=== PATIENT | male | born 1945 | race African-American/Black ===

== ENCOUNTER 2024-05-13 23:30 | Inpatient (IN) | payer MEDICARE, BC ==
[~2024-05-13] VITALS: Ht 167.6 cm; Wt 61.2 kg
[2024-05-14] VITALS (7 sets, daily range): BP systolic 133–152; BP diastolic 44–118; TEMP 97.2–98.8; O2SAT 96–98
[2024-05-14 00:15] LABS: ABG BASE EXCESS 0.3 mmol/L; ABG OXYGEN SATURATION 87.4 % (92.0-98.5); ABG PCO2 35.2 mmHg (35.0-45.0); ABG PH 7.452 (7.350-7.450); ABG PO2 51.4 mmHg (75.0-100.0); AaDO2 63.4 mmHg; COHb 0.3 % (0.5-1.5); MetHb 0.1 % (0.0-1.5); O2Hb 87.1 % (94.0-97.0); SITE, ABG Right Radial; VENT MODE, BG room air
[2024-05-14 00:29] LABS: APPEARANCE,URINE CLEAR (CLEAR); BILIRUBIN,URINE NEGATIVE (NEGATIVE); BLOOD, URINE NEGATIVE Ery/uL (NEGATIVE); COLOR,URINE YELLOW (YELLOW); KETONES,URINE NEGATIVE (NEGATIVE); LEUKOCYTE ESTERASE ,URINE NEGATIVE (NEGATIVE); NITRITE, URINE NEGATIVE (NEGATIVE); PROTEIN,URINE NEGATIVE (NEGATIVE); UGLUCOSE NEGATIVE (NEGATIVE); UROBILINOGEN,URINE 0.2 EU/dL (0.2)
[2024-05-14 00:34] LABS: BASOPHILS # (AUTO) 0.1 K/uL (0.0-0.2); EOSINOPHILS % (AUTO) 0.3 % (0.0-6.0); HEMATOCRIT 28 % (39-51); HEMOGLOBIN 9.1 g/dL (13.5-17.5); LYMPHOCYTES # (AUTO) 0.4 K/uL (0.8-4.8); LYMPHOCYTES % (AUTO) 3.6 % (20.0-44.0); MEAN CORPUSCULAR HEMOGLOBIN 28 PG (26.0-33.0); MEAN CORPUSCULAR HGB CONC 32 g/dl (31.0-36.0); MEAN CORPUSCULAR VOLUME 86 fL (80-96); MONOCYTES # (AUTO) 0.5 K/uL (0.1-1.30); MONOCYTES % (AUTO) 4.1 % (2.0-12.0); NEUTROPHILS # (AUTO) 10.4 K/uL (1.8-8.9); PLATELET COUNT (AUTO) 281 K/uL (150-450); RED BLOOD CELL COUNT(AUTO) 3.28 MIL/uL (4.5-6.0); RED CELL DISTRIBUTION WIDTH 20.5 % (11.5-15.0); WHITE BLOOD COUNT (AUTO) 11.4 K/uL (4.3-11.0)
[2024-05-14 00:55] LABS: CALCIUM, SERUM 9.6 mg/dL (8.5-10.1); CARBON DIOXIDE 26 mmol/L (21-32); CHLORIDE 104 mmol/L (98-107); CREATININE 1.6 mg/dL (0.6-1.3); GLUCOSE 160 mg/dL (74-106); POTASSIUM 4.6 mmol/L (3.5-5.1); SODIUM SERUM 139 mmol/L (136-145); UREA NITROGEN, BLOOD 33 mg/dL (7-18)
[2024-05-14 01:07] LABS: ALANINE AMINOTRANSFERASE 29 U/L (12-78); ALBUMIN 2.4 g/dL (3.4-5.0); ALKALINE PHOSPHATASE 104 U/L (46-116); ASPARTATE AMINOTRANSFERASE 30 U/L (15-37); BILIRUBIN,TOTAL 0.4 mg/dL (0.2-1.0); NT-PRO BNP 286 pg/mL (0-125); TOTAL PROTEIN, SERUM 7.6 g/dL (6.4-8.2)
[2024-05-14] MEDS ORDERED: MAG HYDROX/AL HYDROX/SIMETH 30 ML UDC PO PRN (02:30)
[2024-05-14] MEDS ORDERED: ACETAMINOPHEN 325 MG TABLET PO PRN (02:30)
[2024-05-14] MEDS ORDERED: ONDANSETRON HCL/PF 4 MG/2 ML VIAL IVP PRN (02:30)
[2024-05-14] MEDS ORDERED: MAGNESIUM HYDROXIDE 30 ML UDC PO PRN (02:30)
[2024-05-14] MEDS: CEFTRIAXONE 1GM BAG (ER ONLY) 50 ML IV ONE (03:08)
[2024-05-14] MEDS: IV NS 0.9% 1,000 ML IV SCH (03:24)
[2024-05-14] MEDS: CEFTRIAXONE 1 G in IV D5W 50 ML IV SCH (03:28)
[2024-05-14] MEDS: ENOXAPARIN SODIUM 40 MG/0.4 ML DISP.SYRIN SQ SCH (03:32)
[2024-05-14] MEDS ORDERED: AZITHROMYCIN 500 MG VIAL ONE (04:01)
[2024-05-14] MEDS: AZITHROMYCIN 500 MG in IV D5W 250 ML IV SCH (04:10)
[2024-05-14] MEDS: PANTOPRAZOLE 40 MG VIAL IV SCH (09:38)
[2024-05-14] MEDS ORDERED: HYDROGEL DRESSING 90 GM TUBE TP PRN (10:30)
[2024-05-14] MEDS ORDERED: FURO-145 PO (11:22)
[2024-05-14] MEDS ORDERED: APIX5TAB PO (11:22)
[2024-05-14] MEDS ORDERED: BRIM5DRO EACHEYE (11:22)
[2024-05-14] MEDS ORDERED: TIOT4MIS3 INH (11:22)
[2024-05-14] MEDS ORDERED: LEVO25TA2 PO (11:22)
[2024-05-14] MEDS ORDERED: MELA3TAB41 PO (11:22)
[2024-05-14] MEDS: HYDROGEL DRESSING 90 GM TUBE TP SCH (12:13)
[2024-05-14] MEDS: IV NS 0.9% 1,000 ML IV PRN (18:07)
[2024-05-15] VITALS (8 sets, daily range): BP systolic 105–147; BP diastolic 66–89; TEMP 97.9–98.6; O2SAT 81–100
[2024-05-15 07:20] LABS: CALCIUM, SERUM 8.6 mg/dL (8.5-10.1); CARBON DIOXIDE 23 mmol/L (21-32); CHLORIDE 101 mmol/L (98-107); CREATININE 1.6 mg/dL (0.6-1.3); GLUCOSE 127 mg/dL (74-106); PHOSPHORUS 4.5 mg/dL (2.5-4.9); POTASSIUM 4.4 mmol/L (3.5-5.1); SODIUM SERUM 136 mmol/L (136-145); UREA NITROGEN, BLOOD 33 mg/dL (7-18)
[2024-05-15 07:56] LABS: BASOPHILS % (AUTO) 0.1 % (0.0-2.0); HEMATOCRIT 28 % (39-51); HEMOGLOBIN 9.4 g/dL (13.5-17.5); LYMPHOCYTES # (AUTO) 0.5 K/uL (0.8-4.8); LYMPHOCYTES % (AUTO) 3.4 % (20.0-44.0); MEAN CORPUSCULAR HEMOGLOBIN 30 PG (26.0-33.0); MEAN CORPUSCULAR HGB CONC 34 g/dl (31.0-36.0); MEAN CORPUSCULAR VOLUME 90 fL (80-96); MONOCYTES # (AUTO) 0.9 K/uL (0.1-1.30); MONOCYTES % (AUTO) 6.2 % (2.0-12.0); NEUTROPHILS # (AUTO) 13.2 K/uL (1.8-8.9); NEUTROPHILS % (AUTO) 90.3 % (43.0-81.0); PLATELET COUNT (AUTO) 267 K/uL (150-450); RED BLOOD CELL COUNT(AUTO) 3.13 MIL/uL (4.5-6.0); RED CELL DISTRIBUTION WIDTH 20.9 % (11.5-15.0); WHITE BLOOD COUNT (AUTO) 14.6 K/uL (4.3-11.0)
[2024-05-15 11:27] LABS: IRON, SERUM 18 ug/dl (50-175); TOTAL IRON BINDING CAPACITY 215 ug/dl (250-450)
[2024-05-16 04:38] VITALS: O2SAT 98
[2024-05-16 07:00] VITALS: BP 129/78; TEMP 97.7; O2SAT 100
[2024-05-16] MEDS: PANTOPRAZOLE 40 MG TABLET.DR PO SCH (07:30)
[2024-05-16 07:37] LABS: BASOPHILS % (AUTO) 0.1 % (0.0-2.0); HEMATOCRIT 33 % (39-51); HEMOGLOBIN 10.7 g/dL (13.5-17.5); LYMPHOCYTES # (AUTO) 0.3 K/uL (0.8-4.8); LYMPHOCYTES % (AUTO) 1.8 % (20.0-44.0); MEAN CORPUSCULAR HEMOGLOBIN 29 PG (26.0-33.0); MEAN CORPUSCULAR HGB CONC 32 g/dl (31.0-36.0); MEAN CORPUSCULAR VOLUME 89 fL (80-96); MONOCYTES # (AUTO) 1.3 K/uL (0.1-1.30); MONOCYTES % (AUTO) 8.3 % (2.0-12.0); NEUTROPHILS # (AUTO) 14.6 K/uL (1.8-8.9); NEUTROPHILS % (AUTO) 89.8 % (43.0-81.0); PLATELET COUNT (AUTO) 236 K/uL (150-450); RED BLOOD CELL COUNT(AUTO) 3.74 MIL/uL (4.5-6.0); RED CELL DISTRIBUTION WIDTH 20.1 % (11.5-15.0); WHITE BLOOD COUNT (AUTO) 16.3 K/uL (4.3-11.0)
[2024-05-16 07:55] LABS: CALCIUM, SERUM 8.6 mg/dL (8.5-10.1); CARBON DIOXIDE 20 mmol/L (21-32); CHLORIDE 103 mmol/L (98-107); CREATININE 1.4 mg/dL (0.6-1.3); GLUCOSE 87 mg/dL (74-106); MAGNESIUM 2.2 mg/dL (1.8-2.4); PHOSPHORUS 3.8 mg/dL (2.5-4.9); SODIUM SERUM 137 mmol/L (136-145); UREA NITROGEN, BLOOD 29 mg/dL (7-18)
[2024-05-16 16:00] VITALS: BP 127/91; TEMP 98.4; O2SAT 99
== END 2024-05-16 19:35 | disposition hospice, inpatient (51) | DRG 177 ==
LOC: ER 23:32 → TELE 05-14 02:00 → MED 05-15 10:28
PROVIDERS: ADMIT Internal Medicine; ATTEND Internal Medicine
DX: J15.69 Pneumonia due to other Gram-negative bacteria (principal); G93.41 Metabolic encephalopathy; J96.01 Acute respiratory failure with hypoxia; I21.A1 Myocardial infarction type 2; N17.0 Acute kidney failure with tubular necrosis; J91.0 Malignant pleural effusion; C79.31 Secondary malignant neoplasm of brain; Z85.118 Personal history of other malignant neoplasm of bronchus and lung; E86.0 Dehydration; D64.9 Anemia, unspecified; M89.8X9 Other specified disorders of bone, unspecified site; Z66 Do not resuscitate; N18.9 Chronic kidney disease, unspecified; Z95.1 Presence of aortocoronary bypass graft; I25.10 Atherosclerotic heart disease of native coronary artery without angina pectoris; R51.9 Headache, unspecified; R90.89 Other abnormal findings on diagnostic imaging of central nervous system
CPT/HCPCS: 36415; 36600; 70450-TC; 71045-TC; 76770-TC; 80048-TC; 80053-TC; 82570-TC; 82803-TC; 83540-TC; 83735-TC; 83880; 84100-TC; 84300-TC; 84484-TC; 85025-TC; 94760-TC; 94799-TC; A4223; A6248; G0378; J0456; J0696; J1650; J2470; J7030; J7060

== ENCOUNTER 2024-05-16 20:28 | Inpatient (IN) | payer OTHER ==
[~2024-05-16] VITALS: Ht 167.6 cm; Wt 61.2 kg
[2024-05-16 07:50] VITALS: BP 112/64; TEMP 98.6; O2SAT 95
[~2024-05-16 20:28] MED LIST: APIX5TAB PO; BRIM5DRO EACHEYE; FURO-145 PO; LEVO25TA2 PO; MELA3TAB41 PO; TIOT4MIS3 INH
[2024-05-16] MEDS ORDERED: ONDANSETRON 4 MG TAB.RAPDIS SL PRN (21:30)
[2024-05-16] MEDS ORDERED: BISACODYL SUPP (10 MG) 10 MG/SUPP.RECT SUPP.RECT RC PRN (21:30)
[2024-05-16] MEDS ORDERED: ACETAMINOPHEN 650 MG/SUPP.RECT RC PRN (21:30)
[2024-05-16] MEDS ORDERED: LORAZEPAM ORAL SOLN 2 MG/ML ORAL.CONC SL PRN (21:30)
[2024-05-16] MEDS ORDERED: HYOSCYAMINE SULFATE 0.125 MG TAB.SUBL SL PRN (22:00)
[2024-05-16 22:03] VITALS: BP 120/78; TEMP 98.2; O2SAT 97
[2024-05-16] MEDS: MORPHINE SULFATE SOLN CONCENTRATED 20 MG/ML SL SCH (22:47)
[2024-05-18] MEDS: MORPHINE SULFATE SOLN CONCENTRATED 20 MG/ML SL SCH (07:36)
[2024-05-18 08:00] VITALS: BP 120/75; TEMP 99.7; O2SAT 90
[2024-05-18 16:00] VITALS: BP 109/64; TEMP 99.7; O2SAT 90
[2024-05-18] MEDS ORDERED: MORPHINE SULFATE SOLN CONCENTRATED 20 MG/ML PO PRN (17:30)
[2024-05-18] MEDS: MORPHINE SULFATE SOLN CONCENTRATED 20 MG/ML PO SCH (19:03)
[2024-05-18 20:00] VITALS: BP 149/74; TEMP 98.4; O2SAT 90
[2024-05-19] VITALS (7 sets, daily range): BP systolic 93–149; BP diastolic 57–74; TEMP 97.4–98.4; O2SAT 88–96
[2024-05-19] MEDS ORDERED: LORAZEPAM ORAL SOLN 2 MG/ML ORAL.CONC SL PRN (15:30)
[2024-05-19] MEDS: LORAZEPAM ORAL SOLN 2 MG/ML ORAL.CONC SL SCH (16:07)
[2024-05-19] MEDS: MORPHINE SULFATE SOLN CONCENTRATED 20 MG/ML SL SCH (16:07)
[2024-05-20 04:36] VITALS: O2SAT 86
[2024-05-20 08:28] VITALS: BP 83/56; TEMP 97.4; O2SAT 96
[2024-05-20 12:00] VITALS: BP 112/68; TEMP 97.9; O2SAT 97
[2024-05-20 16:09] VITALS: BP 82/53; O2SAT 80
[2024-05-20] MEDS ORDERED: LORAZEPAM ORAL SOLN 2 MG/ML ORAL.CONC PO PRN (18:30)
[2024-05-20] MEDS: LORAZEPAM ORAL SOLN 2 MG/ML ORAL.CONC PO SCH (18:54)
[2024-05-20] MEDS: MORPHINE SULFATE SOLN CONCENTRATED 20 MG/ML PO SCH (18:54)
[2024-05-20 20:00] VITALS: BP 110/89; TEMP 95; O2SAT 99
== END 2024-05-20 23:28 | DRG 862 ==
LOC: HOSPICE 20:28
PROVIDERS: ATTEND Nurse Practitioner Acute Care
DX: Z51.5 Encounter for palliative care (principal); N17.0 Acute kidney failure with tubular necrosis; J96.01 Acute respiratory failure with hypoxia; G93.41 Metabolic encephalopathy; J15.69 Pneumonia due to other Gram-negative bacteria; I21.A1 Myocardial infarction type 2; C79.31 Secondary malignant neoplasm of brain; J91.0 Malignant pleural effusion; E86.0 Dehydration; Z66 Do not resuscitate; Z85.118 Personal history of other malignant neoplasm of bronchus and lung; N18.9 Chronic kidney disease, unspecified; R90.89 Other abnormal findings on diagnostic imaging of central nervous system
CPT/HCPCS: A6253; G0378